=== PATIENT | male | born 1930 | race Caucasian/White ===

== ENCOUNTER 2017-01-16 12:20 | Emergency (ER) | payer MEDICARE, BC ==
[2017-01-16] MEDS ORDERED: Sodium Chloride 0.9% 10 ML Syringe FLUSH PRN (12:21)
--- NOTE | 2017-01-16 12:21 | EDM.PDOC ---
ED HPI GENERAL MEDICAL PROBLEM - General Chief Complaint: Neurological Problem Stated Complaint: GENERAL Time Seen by Provider: 01/16/17 12:21 Source of Information: Reports: Patient, EMS, Family ( and daughter), Long Term Records, Old Records, Provider (Dr. Morillo), RN, RN Notes Reviewed History Limitations: Reports: No Limitations - History of Present Illness INITIAL COMMENTS - FREE TEXT/NARRATIVE: [place] with [place] staff calling report to ER nurse for "code stroke". Pt arrives wake alert, oriented to person, place, and season stating that he has had a moderate headache since last evening, and his gums hurt from his dentures. He denies confusion, visual changes, numbness or weakness. Pt's and daughter are visiting with him and they state that he is at his normal baseline cognitively and behaviorally, and they see no signs of neurological changes. The pt's main complaint is that his denture hurt his gums and no one has helped him with that problem. [place] staff reports to FULL STACK NET DEVELOPER that the pt was well when last seen about 10PM last night. At 6AM this morning he was found to be confused. Onset: Unknown/Unsure Location: Reports: Head Quality: Reports: Ache Severity: Moderate Improves with: Reports: None Worsens with: Reports: None Associated Symptoms: Reports: No Other Symptoms Head Pain Score (Numeric/FACES): 5 - Related Data Allergies Allergy/AdvReac Type Severity Reaction Status Date / Time azithromycin [From Zithromax] Allergy Cannot Verified 07/08/16 06:50 Remember Sulfa (Sulfonamide Allergy Cannot Verified 07/08/16 06:50 Antibiotics) Remember Home Meds: Home Meds Acetaminophen [Tylenol] 650 mg PO Q6H PRN MDD 3000 MG 07/07/16 [History] Aspirin [Ecotrin] 162 mg PO DAILY 07/07/16 [History] Erythromycin Base [Erythromycin 0.5% Ophth Oint] 1 applic EYEBOTH DAILY PRN [History] Furosemide [Furosemide] 40 mg PO DAILY 07/07/16 [History] Ipratropium [place] 1 spray NASBOTH ASDIRECTED PRN 07/07/16 [History] Ipratropium/Albuterol Sulfate [Iprat-Albut 0.5-3(2.5) mg/3 ml] 1 vial INH Q6H PRN 07/07/16 [History] LORazepam [Ativan] 0.5 mg PO Q8H PRN 07/07/16 [History] Lisinopril [Zestril] 20 mg PO DAILY 07/07/16 [History] Mag Hydrox/Al Hydrox/Simeth [Alum-Mag Hydroxide-Simeth Liq] 30 ml PO BID [History] Magnesium Hydroxide [Milk of Magnesia] 15 ml PO DAILY PRN 07/07/16 [History] Melatonin 3 mg PO BEDTIME PRN 07/07/16 [History] NIFEdipine [Procardia XL] 30 mg PO DAILY 07/07/16 [History] Na Phos,M-B/Na Phos,DI-B [Fleet Enema] 1 bottle RECTAL DAILY PRN 07/07/16 [ History] Nitroglycerin [Nitrostat] 1 tab SL ASDIRECTED PRN MDD 2 DOSE 07/07/16 [History] Pantoprazole [ProTONIX] 40 mg PO DAILY 07/07/16 [History] Potassium Chloride 20 meq PO BID 07/07/16 [History] Sertraline [Zoloft] 100 mg PO DAILY 07/07/16 [History] Tamsulosin Hcl [IJD: Tamsulosin HCl] 0.4 mg PO DAILY 07/07/16 [History] Valproic Acid [Valproic Acid] 500 mg PO BID 07/07/16 [History] guaiFENesin [Robitussin] 2 tsp PO Q4H PRN 07/07/16 [History] oxyCODONE HCl/Acetaminophen [Percocet 5-325 mg Tablet] 1 tab PO QID PRN [History] Fruit Bomb 2 tbsp PO DAILY PRN 07/08/16 [History] Methylcellulose (with Sugar) [Citrucel] 0.5 tsp PO DAILY PRN 07/08/16 [History] Past Medical History Cardiovascular History: Reports: Bypass, CAD, Heart Failure, High Cholesterol, Hypertension, Other (See Below) Other Cardiovascular History: ANEURYSM OF HEART WALL Gastrointestinal History: Reports: Chronic Constipation, GERD, Other (See Below) Other Gastrointestinal History: COLONIC DIVERTICULAR DISEASE Genitourinary History: Reports: BPH, Chronic Renal Insuffiency, Other (See Below ) Other Genitourinary History: NOCTURIA Musculoskeletal History: Reports: Other (See Below) Other Musculoskeletal History: SCIATICA; OLECRANON BURSITIS OF RIGHT ELBOW Neurological History: Reports: Parkinson's, Seizure, Other (See Below) Other Neuro History: DEMENTIA - MULTI INFARCT. CEREBROVASCULAR DISEASE Psychiatric History: Reports: Anxiety, Depression Hematologic History: Reports: Anemia, Other (See Below) Other Hematologic History: PERNICIOUS ANEMIA - Past Surgical History Cardiovascular Surgical History: Reports: Coronary Artery Bypass Neurological Surgical History: Reports: Other (See Below) Social & Family History - Family History Family Medical History: Unobtainable - Tobacco Use Smoking Status *Q: Never Smoker - Living Situation & Occupation Living situation: Reports: , Extended Care Facility Occupation: Retired ED ROS GENERAL - Review of Systems Review Of Systems: ROS reveals no pertinent complaints other than HPI. ED EXAM, NEURO - Physical Exam Exam: See Below Exam Limited By: No Limitations General Appearance: Alert, WD/WN, No Apparent Distress Eye Exam: Bilateral Eye: EOMI, Normal Inspection, PERRL Ears: Hearing Loss (chronic/stable) Nose: Normal Inspection Throat/Mouth: Normal Lips, Normal Oropharynx, Normal Voice, No Airway Compromise , Other (upper gums are contused and with open abrasions from denture friction.) Head Exam: Atraumatic, Normocephalic Neck: Normal Inspection, Supple, Non-Tender, Full Range of Motion Respiratory/Chest: No Respiratory Distress, Lungs Clear, No Accessory Muscle Use , Chest Non-Tender, Decreased Breath Sounds Cardiovascular: Normal Peripheral Pulses, Regular Rate, Rhythm (and intermittently Irreg/Irreg), No JVD, No Murmur GI/Abdominal: Normal Bowel Sounds, Soft, Non-Tender, No Distention, Other ( benign obese abdomen) (Male) Exam: Deferred Rectal (Males) Exam: Deferred Neurological: Alert, Normal Mood/Affect, Normal Dorsiflexion, CN II-XII Intact, Normal Plantar Flexion, No Motor/Sensory Deficits, Other (chronic "pill rolling " rest tremor Rt upper ext > left) Back Exam: Normal Inspection Extremities: Normal Inspection, Normal Range of Motion, Non-Tender, Normal Capillary Refill, Pedal Edema Psychiatric: Normal Affect, Normal Mood Skin Exam: Warm, Dry, Intact, Normal Color, No Rash EKG INTERPRETATION EKG Date: 01/16/17 Time: 12:30 Rate (Beats/Min): 83 [place]: Normal P-Wave: Absent QRS: Normal ST-T: Normal QT: Normal Comparison: Change From Previous EKG Course - Vital Signs Last Recorded V/S: Last Vital Signs Temp 36.6 C 01/16/17 12:20 Pulse 75 01/16/17 12:20 Resp 18 01/16/17 13:58 BP 168/94 H 01/16/17 13:58 Pulse Ox 98 01/16/17 13:58 - Orders/Labs/Meds Orders: Active Orders 24 hr Category Date Time Status Blood Glucose Check, Bedside [] ONETIME Care 01/16/17 12:21 Active EKG 12 Lead [EKG Documentation Completion] [] STAT Care 01/16/17 12:22 Active Peripheral IV Care [] . DIRECTED Care 01/16/17 12:22 Active Sodium Chloride 0.9% [Saline Flush] Med 01/16/17 12:21 Active 10 ml FLUSH ASDIRECTED PRN Peripheral IV Insertion Adult [OM.PC] Stat Oth 01/16/17 12:22 Ordered Medication Orders Sodium Chloride (Saline Flush) 10 ml FLUSH ASDIRECTED PRN PRN Reason: Keep Vein Open Last Admin: 01/16/17 13:14 Dose: 10 ml Labs: Laboratory Tests 01/16/17 01/16/17 01/16/17 Range/Units 12:21 12:30 12:30 WBC 9.9 (5.0-10.0) 10^3/uL RBC 5.01 (4.6-6.2) 10^6/uL Hgb 14.4 (14.0-18.0) g/dL Hct 44.4 (40.0-54.0) % MCV 88.6 (80-100) fL MCH 28.7 (27.0-34.0) pg MCHC 32.4 L (33.0-35.0) g/dL Plt Count 198 (150-450) 10^3/uL Neut % (Auto) 83.5 H (42.2-75.2) % Lymph % (Auto) 10.2 L (20.5-50.1) % Lee % (Auto) 6.0 (2-8) % Eos % (Auto) 0.2 L (1.0-3.0) % Baso % (Auto) 0.1 (0.0-1.0) % PT 9.8 (9.0-12.0) SEC INR 1.0 (0.9-1.2) APTT 26.3 (22.0-34.0) SEC Sodium (135-145) mmol/L Potassium (3.6-5.0) mmol/L Chloride (101-111) mmol/L Carbon Dioxide (21.0-31.0) mmol/L Anion Gap BUN (7-18) mg/dL Creatinine (0.6-1.3) mg/dL Est Cr Clr Drug Dosing Estimated GFR (MDRD) BUN/Creatinine Ratio Glucose (74-105) mg/dL POC Glucose 115 H (83-110) mg/dl Calcium (8.4-10.2) mg/dl Total Bilirubin (0.2-1.0) mg/dL AST (10-42) IU/L ALT (10-60) IU/L Alkaline Phosphatase (42-121) IU/L Troponin I (0.00-0.02) ng/ml Total Protein (6.7-8.2) g/dl Albumin (3.2-5.5) g/dl Globulin Albumin/Globulin Ratio Urine Color (YELLOW) Urine Appearance (CLEAR) Urine pH (5.0-9.0) Ur Specific [place] (1.005-1.030) Urine Protein (NEGATIVE) Urine Glucose (UA) (NEGATIVE) Urine Ketones (NEGATIVE) Urine Occult Blood (NEGATIVE) Urine Nitrite (NEGATIVE) Urine Bilirubin (NEGATIVE) Urine Urobilinogen (0.2-1.0) mg/dL Ur Leukocyte Esterase (NEGATIVE) Urine RBC /HPF Urine WBC (0-5/HPF) /HPF Urine Bacteria (0-FEW/HPF) /HPF Urine Opiates Screen (NEGATIVE) Ur Oxycodone Screen (NEGATIVE) Urine Methadone Screen (NEGATIVE) Ur Barbiturates Screen (NEGATIVE) U Tricyclic Antidepress (NEGATIVE) Ur Phencyclidine Scrn (NEGATIVE) Ur Amphetamine Screen (NEGATIVE) U Methamphetamines Scrn (NEGATIVE) Urine MDMA Screen (NEGATIVE) U Benzodiazepines Scrn (NEGATIVE) Urine Cocaine Screen (NEGATIVE) U Marijuana (THC) Screen (NEGATIVE) Ethyl Alcohol mg/dL 01/16/17 01/16/17 01/16/17 Range/Units 12:30 12:45 12:45 WBC (5.0-10.0) 10^3/uL RBC (4.6-6.2) 10^6/uL Hgb (14.0-18.0) g/dL Hct (40.0-54.0) % MCV (80-100) fL MCH (27.0-34.0) pg MCHC (33.0-35.0) g/dL Plt Count (150-450) 10^3/uL Neut % (Auto) (42.2-75.2) % Lymph % (Auto) (20.5-50.1) % Lee % (Auto) (2-8) % Eos % (Auto) (1.0-3.0) % Baso % (Auto) (0.0-1.0) % PT (9.0-12.0) SEC INR (0.9-1.2) APTT (22.0-34.0) SEC Sodium 140 (135-145) mmol/L Potassium 4.6 (3.6-5.0) mmol/L Chloride 103 (101-111) mmol/L Carbon Dioxide 26.0 (21.0-31.0) mmol/L Anion Gap 15.6 BUN 16 (7-18) mg/dL Creatinine 1.1 (0.6-1.3) mg/dL Est Cr Clr Drug Dosing TNP Estimated GFR (MDRD) > 60 BUN/Creatinine Ratio 14.54 Glucose 117 H (74-105) mg/dL POC Glucose (83-110) mg/dl Calcium 9.4 (8.4-10.2) mg/dl Total Bilirubin 0.6 (0.2-1.0) mg/dL AST 19 (10-42) IU/L ALT 11 (10-60) IU/L Alkaline Phosphatase 64 (42-121) IU/L Troponin I < 0.02 (0.00-0.02) ng/ml Total Protein 7.0 (6.7-8.2) g/dl Albumin 4.1 (3.2-5.5) g/dl Globulin 2.9 Albumin/Globulin Ratio 1.41 Urine Color Light yellow (YELLOW) Urine Appearance Slightly cloudy (CLEAR) Urine pH 7.5 (5.0-9.0) Ur Specific [place] 1.015 (1.005-1.030) Urine Protein Negative (NEGATIVE) Urine Glucose (UA) Negative (NEGATIVE) Urine Ketones Negative (NEGATIVE) Urine Occult Blood Small H (NEGATIVE) Urine Nitrite Negative (NEGATIVE) Urine Bilirubin Negative (NEGATIVE) Urine Urobilinogen 0.2 (0.2-1.0) mg/dL Ur Leukocyte Esterase Negative (NEGATIVE) Urine RBC 5-10 H /HPF Urine WBC 0-5 (0-5/HPF) /HPF Urine Bacteria Not seen (0-FEW/HPF) /HPF Urine Opiates Screen Negative (NEGATIVE) Ur Oxycodone Screen Positive H (NEGATIVE) Urine Methadone Screen Negative (NEGATIVE) Ur Barbiturates Screen Negative (NEGATIVE) U Tricyclic Antidepress Negative (NEGATIVE) Ur Phencyclidine Scrn Negative (NEGATIVE) Ur Amphetamine Screen Negative (NEGATIVE) U Methamphetamines Scrn Negative (NEGATIVE) Urine MDMA Screen Negative (NEGATIVE) U Benzodiazepines Scrn Positive H (NEGATIVE) Urine Cocaine Screen Negative (NEGATIVE) U Marijuana (THC) Screen Negative (NEGATIVE) Ethyl Alcohol < 5 mg/dL Meds: Medications Generic Name Dose Route Start Last Admin Trade Name Freq PRN Reason Stop Dose Admin Sodium Chloride 10 ml 01/16/17 12:21 01/16/17 13:14 Saline Flush FLUSH 10 ml ASDIRECTED PRN Administration Keep Vein Open Discontinued Medications Generic Name Dose Route Start Last Admin Trade Name Freq PRN Reason Stop Dose Admin Hydromorphone HCl 0.5 mg 01/16/17 12:57 01/16/17 13:11 Dilaudid IVPUSH 01/16/17 12:58 0.5 mg ONETIME ONE Administration - Radiology Interpretation Free Text/Narrative:: Head CT: no change from prior study, see Rad report. - Re-Assessments/Exams Free Text/Narrative Re-Assessment/Exam: 01/16/[address] Morillo, he is aware of the findings and will provide care of the pt at the [facility]. Departure - Departure Time of Disposition: 13:41 Disposition: Home, Self-Care 01 Condition: Good Clinical Impression: Atrial fibrillation with normal ventricular rate, Denture irritation Headache Qualifiers: Headache type: unspecified Headache chronicity pattern: unspecified pattern Intractability: not intractable Qualified Code(s): R51 - Headache - Discharge Information Instructions: General Headache Without Cause Referrals: Andrea Morillo MD [Primary Care Provider] - Forms: ED Department Discharge Additional Instructions: No acute findings on exam, labs, urine, EKG, or head CT scan. Follow up with Dr. Morillo if any further concerns. - My Orders Last 24 Hours: My Active Orders 01/16/17 12:21 Blood Glucose Check, Bedside [RC] ONETIME Sodium Chloride 0.9% [Saline Flush] 10 ml FLUSH ASDIRECTED PRN 01/16/17 12:22 EKG 12 Lead [EKG Documentation Completion] [RC] STAT Peripheral IV Care [RC] . DIRECTED Peripheral IV Insertion Adult [OM.PC] Stat - Assessment/Plan Last 24 Hours: My Active Orders 01/16/17 12:21 Blood Glucose Check, Bedside [RC] ONETIME Sodium Chloride 0.9% [Saline Flush] 10 ml FLUSH ASDIRECTED PRN 01/16/17 12:22 EKG 12 Lead [EKG Documentation Completion] [RC] STAT Peripheral IV Care [RC] . DIRECTED Peripheral IV Insertion Adult [OM.PC] Stat
[2017-01-16 12:57] LABS: CHLORIDE,CL 103 mmol/L (101-111); SODIUM,NA 140 mmol/L (135-145)
[2017-01-16] MEDS ORDERED: HYDROmorphone 1 MG/ML Syringe IVPUSH ONE (12:57)
--- NOTE | 2017-01-16 13:04 | CT ---
Clinical history: 86-year-old confused week male reported on [address] scan of the head t o have "extensive multi-infarct ischemic disease unchanged since October 2009". Reevaluate please. Scan technique: Volume acquisition of data emergency unenhanced CT scan of the head and brain obtain ed with patient lying supine on the Siemens multi slice scanner [facility]. All data archived in the PACS system for storage, reformatting and study. Interpretation: Abnormal. 1. Multi-infarct ischemic disease i.e. multiple large lesions identified throughout the periventricu lar white matter both cerebral hemispheres (particularly parietal lobes, left greater than right) un changed when compared directly back to February 2012. 2. Uniformly thick bony calvarium and symmetric clear pneumatization of the mastoid/paranasal sinuse s. 3. Generalized atrophy pattern age-appropriate and symmetric. No hydrocephalus. Physiologic midline pineal and symmetric choroid plexus calcifications. 4. No new supratentorial or posterior fossa mass lesions. 5. No sign of acute intracerebral/intraventricular/subarachnoid bleed. No extracerebral epidural/sub dural hematoma.
[2017-01-16 13:59] VITALS: BP 168/94
--- NOTE | 2017-01-20 06:00 | EKG ---
01/16/2017 - ELLIE BAKER - This 12-lead EKG shows atrial fibrillation with an average ventricular rate of 83 (59 to 103). Normal axis. No acute ST-segment or T-wave changes. [facility] /[id number]
== END 2017-01-16 14:34 | disposition home or self-care (01) ==
LOC: DL.ED 12:20
DX: R51 Headache (principal); I48.91 Unspecified atrial fibrillation; K08.89 Other specified disorders of teeth and supporting structures; I25.10 Atherosclerotic heart disease of native coronary artery without angina pectoris; I13.0 Hypertensive heart and chronic kidney disease with heart failure and stage 1 through stage 4 chronic kidney disease, or unspecified chronic kidney disease; I50.9 Heart failure, unspecified; N18.9 Chronic kidney disease, unspecified; G20 Parkinson's disease; F41.9 Anxiety disorder, unspecified; F32.9 Major depressive disorder, single episode, unspecified; Z88.2 Allergy status to sulfonamides; Z88.1 Allergy status to other antibiotic agents; Z79.82 Long term (current) use of aspirin; Z95.1 Presence of aortocoronary bypass graft; Z79.899 Other long term (current) drug therapy
CPT/HCPCS: 36415; 70450; 80053; 80305; 81001; 82962; 84484; 85025; 85610; 85730; 93005; 93010; 96374; 99284; 99285; G0480; J1170; J7050

== ENCOUNTER 2020-05-19 14:38 | Emergency (ER) | payer MEDICARE, BC ==
--- NOTE | 2020-05-19 17:17 | PCM.SN.2 ---
- Free Text/Narrative Note: I spoke with Dr. Tru Jacobson (Trauma Ortho environmental designer at [facility]). Plan is for non-surgical treatment. He recommends placing a stirrup splint with valgus bent to stabilize the left tib-fib fracture. Mr. Kothari will then be seen in Ortho Clinic in [place] on or of next week for placement of a cast. He will return to [facility] following placement of the splint. Plan discussed with ER provide, CT, TICKET MACHINE OPERATOR.
--- NOTE | 2020-05-19 17:24 | PCM.SN.2 ---
- Free Text/Narrative Note: 05/19/2020 [facility] Progress Note Problem: Comminuted fractures of right tib-fib. Jaylen Kothari is an 89-year-old retirement resident. Last evening he was in his left recliner when he raised the chair straight up and fell onto the floor. This morning he was complaining of right lower leg pain (10/10) and left shoulder pain. He was taken to [facility] for x-rays. 1. X-rays of the right tib-fib show comminuted fractures of the distal diaphyses of the tibia and fibula with slight angulation. 2.No fracture seen of left shoulder. Past Medical History: Dementia; mood and affect improved on Depakote. Chronic kidney disease. Hypertension. Coronary artery disease with stent placement in 2009; EF in 2014 was borderline at 45-50%. 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 Chronic pain, controlled with Fentanyl patch. Dyslipidemia. Chronic anxiety. CKD. Has been consistently negative on [id number] testing at retirement. On oxygen on prn basis but can desat. Functional status: non-ambulatory. Jeremie lift for all transfers. Plan: images sent to [facility]. Case discussed with Dr. Jacobson (Ortho Trauma personnel manager). Case was discussed with Dr. Jacobson. ER provider in [place] will place a stirrup splint with valgus bent on the left leg. Mr. Kothari will be seen in follow-up at the Ortho Clinic next week on or for placement of a cast. This decision was based on his multiple medical issues and non-ambulatory status. He will return to the retirement following placement of the splint.
[2020-05-19 17:53] VITALS: BP 99/32; PULSE 98
--- NOTE | 2020-05-19 18:45 | EDM.PDOC ---
Scribed by Gerda Smith 05/19/20 6021 for Gosia Whipple NP ED HPI GENERAL MEDICAL PROBLEM - General Chief Complaint: General Stated Complaint: BRACE BROKEN TOE Time Seen by Provider: 05/19/20 16:45 Source of Information: Reports: Patient, Provider, RN, RN Notes Reviewed History Limitations: Reports: No Limitations - History of Present Illness INITIAL COMMENTS - FREE TEXT/NARRATIVE: Patient is an 89-year-old male from [facility] for splinting of right tib/fib fracture. Dr. Loza has discussed patient with Ortho. Patient will return to [facility] per [facility]. Dr. Loza will provide further call from there. Onset: Today Duration: Constant Location: Reports: Lower Extremity, Right Quality: Reports: Ache Severity: Severe Improves with: Reports: None Worsens with: Reports: None Associated Symptoms: Reports: No Other Symptoms - Related Data Allergies Allergy/AdvReac Type Severity Reaction Status Date / Time azithromycin [From Zithromax] Allergy Cannot Verified 05/19/20 16:15 Remember Sulfa (Sulfonamide Allergy Cannot Verified 05/19/20 16:15 Antibiotics) Remember Home Meds: Home Meds Acetaminophen [Tylenol] 650 mg PO Q6H PRN MDD 3000 MG 07/07/16 [History] Aspirin [Ecotrin EC] 162 mg PO DAILY 07/07/16 [History] Furosemide 40 mg PO DAILY 07/07/16 [History] Ipratropium [place] 1 spray NASBOTH ASDIRECTED PRN 07/07/16 [History] Ipratropium/Albuterol Sulfate [Iprat-Albut 0.5-3(2.5) mg/3 ml] 1 vial INH Q6H PRN 07/07/16 [History] Mag Hydrox/Aluminum Hyd/Simeth [Alum-Mag Hydroxide-Simeth Liq] 30 ml PO BID 07/07/16 [History] Magnesium Hydroxide [Milk of Magnesia] 15 ml PO DAILY PRN 07/07/16 [History] Melatonin 6 mg PO BEDTIME PRN 07/07/16 [History] NIFEdipine [Procardia XL] 30 mg PO DAILY 07/07/16 [History] Nitroglycerin [Nitrostat] 1 tab SL ASDIRECTED PRN MDD 2 DOSE 07/07/16 [History] Pantoprazole [ProTONIX] 40 mg PO BID 07/07/16 [History] Potassium Chloride 20 meq PO BID 07/07/16 [History] Tamsulosin Hcl [IJD: Tamsulosin HCl] 0.8 mg PO DAILY 07/07/16 [History] guaiFENesin [Robitussin] 2 tsp PO Q4H PRN 07/07/16 [History] lisinopriL [Zestril] 20 mg PO DAILY 07/07/16 [History] Acetaminophen 650 mg PO BEDTIME 05/19/20 [History] Calcium Carbonate [Tums] 2 tab PO DAILY 05/19/20 [History] Carboxymethylcellulose Sodium [Artificial Tears] 2 drop EYEBOTH BEDTIME 05/19/20 [History] Carboxymethylcellulose Sodium [Artificial Tears] 2 drop EYEBOTH Q6H PRN 05/19/20 [History] Divalproex Sodium [Depakote] 250 mg PO BID 05/19/20 [History] Furosemide 20 mg PO .DAILY 1400 05/19/20 [History] LORazepam [Ativan] 0.5 mg PO Q8H 05/19/20 [History] Metoclopramide [Reglan] 5 mg PO TIDAC 05/19/20 [History] Peppermint Oil 50 mg PO DAILY 05/19/20 [History] Sennosides/Docusate Sodium [Senna Plus 8.6-50 mg Tablet] 1 tab PO BID 05/19/20 [History] Sucralfate [Carafate] 1 gm PO QID 05/19/20 [History] bisacodyL [Dulcolax] 1 supp RECTAL DAILY 05/19/20 [History] fentaNYL [Duragesic] 1 patch TD Q72H 05/19/20 [History] oxyCODONE 5 mg PO Q8H PRN 05/19/20 [History] polyethylene glycoL 3350 [MiraLAX] 17 gm PO Q48H 05/19/20 [History] Past Medical History Cardiovascular History: Reports: Bypass, CAD, Heart Failure, High Cholesterol, Hypertension, Other (See Below) Other Cardiovascular History: ANEURYSM OF HEART WALL Gastrointestinal History: Reports: Chronic Constipation, GERD, Other (See Below) Other Gastrointestinal History: COLONIC DIVERTICULAR DISEASE Genitourinary History: Reports: BPH, Chronic Renal Insuffiency, Other (See Below) Other Genitourinary History: NOCTURIA Musculoskeletal History: Reports: Other (See Below) Other Musculoskeletal History: SCIATICA; OLECRANON BURSITIS OF RIGHT ELBOW Neurological History: Reports: Parkinson's, Seizure, Other (See Below) Other Neuro History: DEMENTIA - MULTI INFARCT. CEREBROVASCULAR DISEASE Psychiatric History: Reports: Anxiety, Depression Hematologic History: Reports: Anemia, Other (See Below) Other Hematologic History: PERNICIOUS ANEMIA - Past Surgical History Cardiovascular Surgical History: Reports: Coronary Artery Bypass GI Surgical History: Reports: Cholecystectomy, Colonoscopy Male Surgical History: Reports: Mastectomy Neurological Surgical History: Reports: Other (See Below) Other Neurological Surgeries/Procedures: BACK SURGERY Social & Family History - Family History Family Medical History: Unobtainable - Tobacco Use Tobacco Use Status *Q: Unknown Ever Used Tobacco - Recreational Drug Use Recreational Drug Use: No - Living Situation & Occupation Living situation: Reports: , Extended Care Facility Occupation: Retired ED ROS GENERAL - Review of Systems Review Of Systems: Comprehensive ROS is negative, except as noted in HPI. ED EXAM, GENERAL - Physical Exam Exam: See Below Exam Limited By: No Limitations General Appearance: Alert, WD/WN, No Apparent Distress Eye Exam: Bilateral Eye: EOMI, Normal Inspection, PERRL Ears: Normal External Exam, Normal Canal, Hearing Grossly Normal, Normal TMs Nose: Normal Inspection, Normal Mucosa, No Blood Throat/Mouth: Normal Inspection, Normal Lips, Normal Teeth, Normal Gums, Normal Oropharynx, Normal Voice, No Airway Compromise Head: Atraumatic, Normocephalic Neck: Normal Inspection, Supple, Non-Tender, Full Range of Motion Respiratory/Chest: Crackles (bases bilateral), Other (diminished breath sounds) Cardiovascular: Normal Peripheral Pulses, Regular Rate, Rhythm, No Edema, No Gallop, No JVD, No Murmur, No Rub GI/Abdominal: Normal Bowel Sounds, Soft, Non-Tender, No Organomegaly, No Distention, No Abnormal Bruit, No Mass (Male) Exam: Deferred Rectal (Males) Exam: Deferred Back Exam: Normal Inspection, Full Range of Motion, NT Extremities: Other (right tib/fib fracture) Neurological: Alert, Oriented, CN II-XII Intact, Normal Cognition, Normal Gait, Normal Reflexes, No Motor/Sensory Deficits Psychiatric: Normal Affect, Normal Mood Skin Exam: Warm, Dry, Intact, Normal Color, No Rash Lymphatic: No Adenopathy ED GENERAL MEDICAL PROCEDURES - Splinting Right Lower Extremity Splint Site: right tib/fib Pre-procedure NV status: Normal Post-procedure NV status: Normal Splint Type: Custom Splint Material: Fiberglass Splint Design: Volar, Stirrup Applied & Form Fitted By: Provider, Nurse, Tech Provider Post-Splint Application NV Check: NV Status Normal, Good Position Complications: No Course - Vital Signs Last Recorded V/S: Last Vital Signs Temp 97.6 F 05/19/20 17:00 Pulse 98 05/19/20 17:00 Resp 20 05/19/20 17:00 BP 99/32 L 05/19/20 17:52 Pulse Ox 98 05/19/20 17:00 - Radiology Interpretation Free Text/Narrative:: PROCEDURE INFORMATION: Exam: XR Left Shoulder Exam date and time: 05/19/2020 1:53 PM Age: 89 years old Clinical indication: Other: Left shoulder pain; Additional info: Left shoulder pain, fall TECHNIQUE: Imaging protocol: XR Left shoulder. Views: 2 or more views. COMPARISON: No relevant prior studies available. FINDINGS: Bones/joints: There is inferior subluxation of the humeral head relative to the glenoid. Vasculature: The vasculature demonstrates diffuse moderate atherosclerotic calcification. Soft tissues: Mild soft tissue swelling is present. IMPRESSION: There is inferior subluxation of the humeral head relative to the glenoid. Recommend axillary and scapular Y-views in follow-up for further evaluation. Thank you for allowing us to participate in the care of your patient. Dictated and Authenticated by: Stevie León DO 05/19/2020 2:38 PM Central Time ([place] & [place]) PROCEDURE INFORMATION: Exam: XR Right Tibia and Fibula Exam date and time: 05/19/2020 12:57 PM Age: 89 years old Clinical indication: Other: Pain lower right leg, fall TECHNIQUE: Imaging protocol: XR Right tibia and fibula. Views: 2 views. COMPARISON: CR Femur Min 2V Rt 05/19/2020 12:51 PM FINDINGS: Bones/joints: Comminuted fractures of the distal diaphyses of the tibia and fibula are present with slight angulation. Soft tissues: Soft tissue swelling is present. Surgical clips noted within the posterior soft tissues. Vasculature: The vasculature demonstrates diffuse moderate atherosclerotic calcification. IMPRESSION: 1. Comminuted fractures of the distal diaphyses of the tibia and fibula are present with slight angulation. 2. Soft tissue swelling is present. Thank you for allowing us to participate in the care of your patient. Dictated and Authenticated by: Stevie León DO 05/19/2020 2:39 PM Central Time ([place] & [place]) PROCEDURE INFORMATION: Exam: XR Right Femur Exam date and time: 05/19/2020 12:51 PM Age: 89 years old Clinical indication: Other: Pain lower right leg TECHNIQUE: Imaging protocol: XR Right femur. Views: 2 views. COMPARISON: No relevant prior studies available. FINDINGS: Bones/joints: Moderate degenerative changes of the hip and knee are present. There is no evidence of acute fracture. Soft tissues: Soft tissue swelling is present. Vasculature: The vasculature demonstrates diffuse moderate atherosclerotic calcification. IMPRESSION: 1. Moderate degenerative changes of the hip and knee are present. 2. No evidence of acute fracture. 3. Soft tissue swelling is present. Thank you for allowing us to participate in the care of your patient. Dictated and Authenticated by: Stevie León DO 05/19/2020 2:40 PM Central Time ([place] & [place]) See Rad report Departure - Departure Time of Disposition: 17:58 Disposition: DC/Tfer to [employer] [facility] Condition: Fair Clinical Impression: Tibia/fibula fracture, shaft Qualifiers: Encounter type: initial encounter Fracture type: closed Laterality: right Qualified Code(s): S82.201A - Unspecified fracture of shaft of right tibia, initial encounter for closed fracture; S82.401A - Unspecified fracture of shaft of right fibula, initial encounter for closed fracture - Discharge Information *PRESCRIPTION DRUG MONITORING PROGRAM REVIEWED*: No *COPY OF PRESCRIPTION DRUG MONITORING REPORT IN PATIENT NENA: No Forms: ED Department Discharge Additional Instructions: Follow up with ortho per Dr. Loza Sepsis Event Note (ED) - Evaluation Sepsis Screening Result: No Definite Risk - Focused Exam Vital Signs: Vital Signs Temp Pulse Resp BP Pulse Ox 05/19/20 17:52 99/32 L 05/19/20 17:00 97.6 F 98 20 100/50 L 98 05/19/20 15:50 100/50 L 05/19/20 14:45 96.5 F L 68 20 110/50 L 71 L I have read and agree with the documentation that has been completed regarding this visit. By signing this record, I attest that the documentation was completed in my physical presence and is an accurate record of the encounter.
== END 2020-05-19 18:29 ==
LOC: DL.ED 14:38
DX: S82.301A Unspecified fracture of lower end of right tibia, initial encounter for closed fracture (principal); S82.831A Other fracture of upper and lower end of right fibula, initial encounter for closed fracture; I13.0 Hypertensive heart and chronic kidney disease with heart failure and stage 1 through stage 4 chronic kidney disease, or unspecified chronic kidney disease; N18.9 Chronic kidney disease, unspecified; I50.9 Heart failure, unspecified; I25.10 Atherosclerotic heart disease of native coronary artery without angina pectoris; K21.9 Gastro-esophageal reflux disease without esophagitis; N40.0 Benign prostatic hyperplasia without lower urinary tract symptoms; F41.9 Anxiety disorder, unspecified; F32.9 Major depressive disorder, single episode, unspecified; D51.0 Vitamin B12 deficiency anemia due to intrinsic factor deficiency; Z88.1 Allergy status to other antibiotic agents; Z88.2 Allergy status to sulfonamides; Z79.82 Long term (current) use of aspirin; Z79.899 Other long term (current) drug therapy; X58.XXXA Exposure to other specified factors, initial encounter
CPT/HCPCS: 29515; 99282-25; 99284